=== PATIENT | female | born 1975 | race Caucasian/White ===

== ENCOUNTER 2021-12-19 12:04 | Outpatient (CLI) | payer OTHER | END 2021-12-19 12:11 | disposition home or self-care (01) | LOC: MAMO-SONO 12:04 | PROVIDERS: ATTEND General Practice | DX: N60.29 Fibroadenosis of unspecified breast (principal); N64.4 Mastodynia ==

== ENCOUNTER → 2021-12-21 08:22 | Outpatient (CLI) | payer OTHER | END | disposition home or self-care (01) | LOC: LAB 08:22 | PROVIDERS: ATTEND General Practice | DX: E83.32 Hereditary vitamin D-dependent rickets (type 1) (type 2) (principal); M81.0 Age-related osteoporosis without current pathological fracture; E06.3 Autoimmune thyroiditis; N30.00 Acute cystitis without hematuria; I11.9 Hypertensive heart disease without heart failure; E11.22 Type 2 diabetes mellitus with diabetic chronic kidney disease; Z12.11 Encounter for screening for malignant neoplasm of colon; E11.42 Type 2 diabetes mellitus with diabetic polyneuropathy; E78.2 Mixed hyperlipidemia; M15.0 Primary generalized (osteo)arthritis; M06.9 Rheumatoid arthritis, unspecified ==

== ENCOUNTER 2021-12-28 08:51 | Outpatient (CLI) | payer OTHER | END 2021-12-28 08:53 | disposition home or self-care (01) | LOC: LAB 08:51 | PROVIDERS: ATTEND General Practice | DX: Z12.11 Encounter for screening for malignant neoplasm of colon (principal) ==

== ENCOUNTER → 2022-01-27 | Outpatient (CLI) | payer OTHER | END | disposition home or self-care (01) | LOC: NUCLEAR 12-26 14:00 | PROVIDERS: ATTEND General Practice | DX: M81.0 Age-related osteoporosis without current pathological fracture (principal) ==

== ENCOUNTER 2022-02-21 18:40 | Emergency (ER) | payer OTHER ==
[~2022-02-21] VITALS: Ht 149.9 cm; Wt 91.6 kg
== END 2022-02-21 23:40 | disposition left against medical advice (07) ==
LOC: ER 18:40
DX: S92.512A Displaced fracture of proximal phalanx of left lesser toe(s), initial encounter for closed fracture (principal); W18.39XA Other fall on same level, initial encounter; Y93.9 Activity, unspecified; Y92.018 Other place in single-family (private) house as the place of occurrence of the external cause; Y99.9 Unspecified external cause status; Z88.1 Allergy status to other antibiotic agents

== ENCOUNTER 2023-02-21 08:01 | Outpatient (CLI) | payer OTHER | END 2023-02-21 08:03 | disposition home or self-care (01) | LOC: LAB 08:01 | DX: E11.22 Type 2 diabetes mellitus with diabetic chronic kidney disease (principal); E11.42 Type 2 diabetes mellitus with diabetic polyneuropathy; I11.9 Hypertensive heart disease without heart failure; E06.3 Autoimmune thyroiditis; N30.00 Acute cystitis without hematuria; E83.32 Hereditary vitamin D-dependent rickets (type 1) (type 2); E78.2 Mixed hyperlipidemia; Z12.11 Encounter for screening for malignant neoplasm of colon ==

== ENCOUNTER 2023-03-09 12:53 | Outpatient (CLI) | payer OTHER | END 2023-03-09 12:55 | disposition home or self-care (01) | LOC: LAB 12:53 | DX: Z12.11 Encounter for screening for malignant neoplasm of colon (principal) ==

== ENCOUNTER 2023-03-13 07:17 | Outpatient (CLI) | payer OTHER | END 2023-03-13 07:19 | disposition home or self-care (01) | LOC: TOM 07:17 | PROVIDERS: ATTEND General Practice | DX: K57.30 Diverticulosis of large intestine without perforation or abscess without bleeding (principal) ==

== ENCOUNTER 2023-04-20 07:51 | Outpatient (CLI) | payer OTHER | END 2023-04-20 07:56 | disposition home or self-care (01) | LOC: SONOGRAMA 07:51 | PROVIDERS: ATTEND Internal Medicine Gastroenterology | DX: R10.12 Left upper quadrant pain (principal) ==

== ENCOUNTER 2023-10-03 10:14 | Outpatient (CLI) | payer OTHER ==
[2023-10-03 11:19] LABS: URINE APPEARANCE Clear; URINE BILIRRUBIN Negative (NEGATIVE); URINE BLOOD Trace; URINE COLOR Yellow; URINE GLUCOSE Negative (NEGATIVE); URINE LEUKOCYTE Negative; URINE NITRATE Negative; URINE PROTEIN Negative (NEGATIVE); URINE UROBILINOGEN 0.2 E.U./dl
[2023-10-03 11:24] LABS: HEMATOCRIT 42.1 % (36.0-45.00); HEMOGLOBIN 14.2 g/dL (12.0-15.00); MEAN CELL VOLUME 86.8 fL (80.00-100.00); MEAN CORPUSCULAR HEMOGLOBIN 29.3 pg (27.00-32.0); MEAN CORPUSCULAR HGB CONC 33.7 g/dl (32.0-36.0); PLATELET COUNT 262 K/uL (150-450); RED BLOOD COUNT 4.85 M/uL (4.00-6.00)
[2023-10-03 11:44] LABS: URINE RBC 5.1 uL (0.0-20.8); URINE WBC 2.7 uL (0.0-23.2)
[2023-10-03 11:45] LABS: URINE BACTERIA 64.2 uL (0.0-1933); URINE EPITHELIAL CELLS 10.9 uL (0.0-38.8)
[2023-10-03 12:05] LABS: ALBUMIN 3.8 gm/dL (3.4-5.0); BILIRUBIN TOTAL 0.48 mg/dL (0.3-1.2); CALCIUM 9.3 mg/dL (8.5-10.1); CHOL HDL RATIO 6.2 (0-5.0); CREATININE SERUM 0.68 mg/dL (0.55-1.02); GFR 91.59; GLOBULINA 3.2 G/DL (2.4-3.5); POTASSIUM 4.39 mEq/L (3.5-5.1); TSH 0.705 uIU/mL (0.358-3.74)
== END 2023-10-03 10:18 | disposition home or self-care (01) ==
LOC: LAB 10:14
PROVIDERS: ATTEND General Practice
DX: Z12.11 Encounter for screening for malignant neoplasm of colon (principal); E11.22 Type 2 diabetes mellitus with diabetic chronic kidney disease; E11.42 Type 2 diabetes mellitus with diabetic polyneuropathy; I11.9 Hypertensive heart disease without heart failure; E06.3 Autoimmune thyroiditis; N30.00 Acute cystitis without hematuria; E83.32 Hereditary vitamin D-dependent rickets (type 1) (type 2); E78.2 Mixed hyperlipidemia; M81.0 Age-related osteoporosis without current pathological fracture